=== PATIENT | male | born 1950 | race Hispanic/Latino ===

== ENCOUNTER 2018-01-06 18:20 | Inpatient (IN) | payer MEDICARE ==
[~2018-01-06 18:20] MED LIST: ISOVUE-370 76%-LOCM 1 ML ONE
[2018-01-06 19:43] LABS: #Eosinphils 0.1 thou/uL (0.0-0.7); #Lymphocytes 1.1 thou/uL (1.20-3.40); #Monocytes 0.5 thou/uL (0.11-0.59); #Neutrophils 8.4 thou/uL (1.40-6.50); %Basophils 0.3 % (0.0-1.0); %Eosinophils 1.1 % (0.0-10.0); %Lymphocytes 10.6 % (21.0-51.0); %Monocytes 5.3 % (0.0-10.0); %Neutrophils 82.7 % (42.0-75.0); Hemoglobin 9.8 g/dL (14.0-18.0); Mean Corpuscular HGB CONC 35.5 g/dL (32.0-36.0); Mean Corpuscular Hemoglobin 32.4 pg (27.0-31.0); Mean Corpuscular Volume 91.1 fL (78.0-98.0); Mean Platelet Volume 5.1 fL (7.4-10.4); Platelet Count 279 thou/uL (130-400); RBC Distribution Width 11.6 % (11.5-14.5); Red Blood Cell (RBC) Count 3.03 mill/uL (4.70-6.10); White Blood Cell (WBC) Count 10.1 thou/uL (4.8-10.8)
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
[2018-01-06 20:08] LABS: CKMB 0.8 ng/mL (0-6.6); Troponin I Less than 0.010 ng/mL (< 0.028)
[2018-01-06 20:09] LABS: ALT (SGPT) 18 U/L (8-55); AST (SGOT) 14 U/L (5-34); Albumin 3.9 g/dL (3.4-4.8); Alkaline Phosphatase 102 U/L (40-150); Anion Gap 11 mmol/L (10-20); BUN (Urea Nitrogen) 22 mg/dL (8.4-25.7); Bilirubin, Total 0.2 mg/dL (0.2-1.2); CK (CPK) 59 U/L (30-200); Calc. Creatinine Clearance 0 mL/min (70-130); Calcium 8.5 mg/dL (7.8-10.44); Carbon Dioxide 22 mmol/L (23-31); Chloride 108 mmol/L (98-107); Estimated GFR-MDRD 82; Globulin 2.6 g/dL (2.4-3.5); Glucose 128 mg/dL (80-115); Potassium 4.7 mmol/L (3.5-5.1); Protein, Total 6.5 g/dL (5.8-8.1); Sodium 136 mmol/L (136-145)
[2018-01-06 21:32] LABS: Bilirubin Negative (Negative); Blood, Urine Negative (Negative); Clarity CLEAR (Clear); Glucose, Urine (Dipstick) Negative (Negative); Leukocyte Negative (Negative); Nitrite Negative (Negative); Protein, Urine (Dipstick) Negative (Neg-Trace); Specific Gravity, Urine 1.011 (1.002-1.036); Urobilinogen 0.2 mg/dL (0.2-1.0)
--- NOTE | 2018-01-06 22:52 | CT ---
CT ANGIOGRAM OF THE HEAD WITH AND WITHOUT CONTRAST: 01/06/18 HISTORY: 67-year-old male with altered mental status, confusion, fall, and head trauma. TECHNIQUE: Noncontrast brain CT performed. Next, IV injection of Isovue. Arterial phase scan performed from C3-4 to vertex of head. Coronal and sagittal 3D MIP reconstructions. FINDINGS: There is moderate calcified and noncalcified plaque in the bilateral proximal internal carotid arteri es, including carotid bulbs. On the right this causes a severe focal stenosis of approximately 75 to 85%, located approximately 1.5 to 2 cm distal to the origin of the right internal carotid. On the lef t, this causes an approximately 30% stenosis at 0.5 to 1 cm from the origin. There is extensive atherosclerotic plaque throughout the bilateral carotid siphons, causing stenosis of the carotid siphons, especially on the left (moderate). There is atherosclerotic plaque at the distal cervical internal carotid arteries without high grade s tenosis. There is no high grade stenosis or occlusion of the supraclinoid internal carotids, M1 segments of th e bilateral middle cerebral arteries, or the A1 and A2 segments of the bilateral anterior cerebral ar teries. 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 No high grade acquired stenosis identified involving the intracranial vertebral arteries, posterior cerebral arteries, or superior cerebellar arteries. No obvious occlusion of the trifurcati on branches of the bilateral MCAs. There is also atherosclerotic plaque at the distal cervical left vertebral artery at the C1 level. Fo r the findings of the noncontrast brain CT component, please see the separate report of the brain CT performed one and a half hours earlier. IMPRESSION: 1. Significant atherosclerosis of bilateral proximal internal carotid arteries, including a emeterio re focal stenosis in the proximal right internal carotid artery. 2. Significant atherosclerosis of bilateral carotid siphons, including moderate stenosis on the left. 3. No high grade stenosis or occlusion involving the teller of Sanders identified. POS: NICOLE
[2018-01-06 23:18] LABS: PTT 25.6 SEC (22.9-36.1); Prothrombin Time 13.2 SEC (12.0-14.7)
[2018-01-06 23:58] LABS: Troponin I 0.018 ng/mL (< 0.028)
[2018-01-07] MEDS ORDERED: Sodium Chloride 0.9% 1,000 ML IV SCH (01:11)
[2018-01-07 01:42] VITALS: BMI 27.2
[2018-01-07] MEDS ORDERED: Nitroglycerin 0.4 MG TAB (25 Tab Bottle) SL PRN ×2 (02:28→19:29)
[2018-01-07] MEDS ORDERED: Acetaminophen 325 MG TAB PO PRN ×2 (02:28→19:26)
[2018-01-07] MEDS ORDERED: Loratadine 10 MG TAB PO PRN ×2 (02:28→19:29)
[2018-01-07] MEDS ORDERED: Bisacodyl 5 MG TAB PO PRN ×3 (02:28→19:26)
[2018-01-07] MEDS ORDERED: Ondansetron HCl/PF 4 MG/2 ML Vial IVP PRN ×2 (02:28→19:29)
[2018-01-07] MEDS ORDERED: Mag-Al 1200 mg/1200 mg/30 ML UDCUP PO PRN ×2 (02:28→19:26)
[2018-01-07] MEDS ORDERED: Calcium Carbonate 500 MG ChewTAB PO PRN ×2 (02:28→19:26)
[2018-01-07] MEDS ORDERED: Senokot 8.6 MG TAB PO PRN ×3 (02:28→19:29)
[2018-01-07] MEDS ORDERED: Diabetic Tussin 200 MG/10 ML UDCUP PO PRN ×2 (02:28→19:28)
[2018-01-07] MEDS ORDERED: Benzonatate 100 MG CAP PO PRN ×2 (02:28→19:26)
[2018-01-07] MEDS ORDERED: cloNIDine 0.1 MG TAB PO PRN ×2 (02:28→19:28)
[2018-01-07] MEDS ORDERED: traMADol HCl 50 MG TAB PO PRN ×2 (02:28→19:29)
[2018-01-07] MEDS ORDERED: hydrALAZINE 20 MG/ML VIAL SLOW IVP PRN ×2 (02:28→19:28)
[2018-01-07 02:38] LABS: Troponin I 0.037 ng/mL (< 0.028)
[2018-01-07] MEDS ORDERED: Dextrose 5% in Water 1,000 ML IV PRN ×2 (03:13→19:29)
[2018-01-07] MEDS ORDERED: HumaLOG 300 UNITS/3 ML VIAL SC PRN ×4 (03:13→19:30)
[2018-01-07] MEDS ORDERED: Dextrose 50% Abboject 50 ML SYRINGE SLOW IVP PRN ×2 (03:13→19:30)
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
[2018-01-07 05:34] LABS: #Eosinphils 0.1 thou/uL (0.0-0.7); #Lymphocytes 1.7 thou/uL (1.20-3.40); #Monocytes 0.6 thou/uL (0.11-0.59); #Neutrophils 4.3 thou/uL (1.40-6.50); %Basophils 0.5 % (0.0-1.0); %Eosinophils 2.2 % (0.0-10.0); %Lymphocytes 24.7 % (21.0-51.0); %Monocytes 8.5 % (0.0-10.0); %Neutrophils 64.2 % (42.0-75.0); Hemoglobin 9.6 g/dL (14.0-18.0); Mean Corpuscular HGB CONC 34.1 g/dL (32.0-36.0); Mean Corpuscular Volume 90.8 fL (78.0-98.0); Mean Platelet Volume 5.2 fL (7.4-10.4); Platelet Count 270 thou/uL (130-400); RBC Distribution Width 11.8 % (11.5-14.5); Red Blood Cell (RBC) Count 3.11 mill/uL (4.70-6.10); White Blood Cell (WBC) Count 6.7 thou/uL (4.8-10.8)
[2018-01-07 05:41] LABS: Anion Gap 11 mmol/L (10-20); BUN (Urea Nitrogen) 17 mg/dL (8.4-25.7); Calc. Creatinine Clearance 103 mL/min (70-130); Calcium 8.9 mg/dL (7.8-10.44); Carbon Dioxide 22 mmol/L (23-31); Cardiac Risk 3.8 (Less than 4.5); Chloride 110 mmol/L (98-107); Cholesterol 137 mg/dl (< 200 Desired); Estimated GFR-MDRD Greater than 90; Glucose 111 mg/dL (80-115); HDL Cholesterol 36 mg/dL (>60 Neg Risk); Iron 78 ug/dL (65-175); Iron Binding Capacity, Total 273 mcg/dL (261-462); LDL Cholesterol, Calculated 47 mg/dL; Potassium 3.9 mmol/L (3.5-5.1); Sodium 139 mmol/L (136-145); Triglycerides 269 mg/dL (Less than 150)
[2018-01-07 06:12] LABS: Folate (Folic Acid) 7.7 ng/mL (7.0-31.4)
--- NOTE | 2018-01-07 08:44 | PDOC.EVN ---
Event Note - Event Note Event Note: EVALUATED PATIENT. HE IS BACK TO HIS BASELINE ACCORDING TO HIM AND HIS FAMILY. HIS EXAM REVEALS SOME WEAKNESS IN HIS L FOOT DORSIFLEXION, BUT HE REPORTS THAT IS RELATED TO A NEUROPATHY SECONDARY TO PVD. HE STATED HE WAS SUPPOSED TO GO TO [place] TO HAVE THAT EVALUATED FOR POSSIBLE INTERVENTION. CV SURGERY CONSULT PENDING FOR CAROTID STENOSIS IN THE SETTING OF SYNCOPE AND TIA. ALSO HAS SOME MILD ANEMIA OF UNKNOWN ETIOLOGY. WORKUP IN PROGRESS.
[2018-01-07] MEDS ORDERED: Lisinopril 20 MG TAB PO SCH (09:00)
[2018-01-07] MEDS ORDERED: Pregabalin 75 MG CAP PO SCH (09:00)
[2018-01-07] MEDS ORDERED: Enoxaparin Sodium 40 MG/0.4 ML SYRINGE SC SCH (09:00)
[2018-01-07] MEDS ORDERED: Aspirin 325 mg Enteric Coated Tablet PO SCH (09:00)
[2018-01-07] MEDS ORDERED: Famotidine 20 MG TAB PO SCH (09:00)
[2018-01-07] MEDS ORDERED: Cyanocobalamin (Vitamin B-12) 1,000 MCG TAB PO SCH (09:00)
[2018-01-07] MEDS ORDERED: Rosuvastatin 20 MG TAB PO SCH (09:00)
--- NOTE | 2018-01-07 14:44 | MRI ---
MRI BRAIN NONCONTRAST: History: Altered mental status. TIA. FINDINGS: There is no evidence of acute intracranial hemorrhage or infarct. Ventricles appear normal in size, s hape, and position. There is no mass effect or shift of midline structures. Visualized paranasal sinu ses remain well aerated. IMPRESSION: No acute intracranial abnormalities are demonstrated. POS: KAILYN
[2018-01-07] MEDS ORDERED: Prevnar 13-Val Conj/PF 0.5 ML SYRINGE IM ONE (19:30)
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
[2018-01-07] MEDS: Famotidine 20 MG TAB PO SCH (21:03)
[2018-01-07] MEDS: Pregabalin 75 MG CAP PO SCH (21:03)
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
[2018-01-08] MEDS ORDERED: Cyanocobalamin (Vitamin B-12) 1,000 MCG TAB PO SCH (09:00)
[2018-01-08] MEDS ORDERED: Enoxaparin Sodium 40 MG/0.4 ML SYRINGE SC SCH (09:00)
[2018-01-08] MEDS ORDERED: Prevnar 13-Val Conj/PF 0.5 ML SYRINGE IM ONE (09:00)
[2018-01-08] MEDS ORDERED: Rosuvastatin 20 MG TAB PO SCH (09:00)
[2018-01-08] MEDS ORDERED: Aspirin 325 mg Enteric Coated Tablet PO SCH (09:00)
[2018-01-08] MEDS ORDERED: Lisinopril 20 MG TAB PO SCH (09:00)
[2018-01-08] MEDS: Pregabalin 75 MG CAP PO SCH (09:14)
[2018-01-08] MEDS: Famotidine 20 MG TAB PO SCH (09:17)
[2018-01-08 11:45] VITALS: BP 121/72; TEMP 97.9
--- NOTE | 2018-01-09 13:27 | EKG ---
Test Reason : SYNCOPE Blood Pressure : / mmHG Vent. Rate : 114 BPM Atrial Rate : 114 BPM P-R Int : 148 ms QRS Dur : 076 ms QT Int : 332 ms P-R-T Axes : 037 049 046 degrees QTc Int : 457 ms Sinus tachycardia Otherwise normal ECG Confirmed by GERA FAJARDO ([id number]), newspaper photo editor DARRYL MAS ([id number]) on 01/09/2018 1:27:27 PM Referred By: Confirmed By:GERA FAJARDO
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
== END 2018-01-08 14:23 | disposition home or self-care (01) | DRG 68 ==
LOC: ERS 18:20 → 2SE 22:44 → UNDODISIN 01-07 19:00
PROVIDERS: ADMIT Internal Medicine; ATTEND Internal Medicine
DX: I65.23 Occlusion and stenosis of bilateral carotid arteries (principal); E11.51 Type 2 diabetes mellitus with diabetic peripheral angiopathy without gangrene; I10 Essential (primary) hypertension; D64.9 Anemia, unspecified
CPT/HCPCS: 0042T; 36415; 36416; 70450; 70496; 70551; 80048; 80053; 80061; 81003; 82553; 82607; 82746; 83540; 83550; 84484; 85025; 85610; 85730; 90471; 90670; 93005; 96360; 99406; A4216; G0009; G8978-GP-CL; G8979-GP-CL; G8980-GP-CL; G8987-GO-CI; G8988-GO-CI; G8989-GO-CI; G8996-GN-CH; G8997-GN-CH; G8998-GN-CH; J1650

== ENCOUNTER 2018-03-25 14:15 | Emergency (ER) | payer MEDICARE ==
[2018-03-25] MEDS ORDERED: Lidocaine 1% 20 ML MDV ONE (14:27)
[2018-03-25] MEDS ORDERED: Bacitracin Zinc 1 Packet ONE (14:39)
== END 2018-03-25 14:46 | disposition home or self-care (01) ==
LOC: SCSER 14:15
DX: L02.214 Cutaneous abscess of groin (principal); I10 Essential (primary) hypertension; E11.9 Type 2 diabetes mellitus without complications; F17.210 Nicotine dependence, cigarettes, uncomplicated; Z79.82 Long term (current) use of aspirin; Z79.84 Long term (current) use of oral hypoglycemic drugs; Z79.899 Other long term (current) drug therapy
CPT/HCPCS: 10061; J2001

== ENCOUNTER 2018-04-20 05:55 | Inpatient (IN) | payer MEDICARE ==
--- NOTE | 2018-04-19 13:21 | HP ---
DATE OF ADMISSION: 04/20/2018 HISTORY OF PRESENT ILLNESS: This is a 67-year-old gentleman that was found to have a severe asymptom atic right carotid stenosis. The patient is now being admitted for elective right carotid endarterec cruz. PAST MEDICAL HISTORY: Significant for diabetes mellitus, hypertension and peripheral vascular diseas e. PAST SURGICAL HISTORY: Cholecystectomy, right common femoral endarterectomy 07/2017, left femoral en darterectomy 11/2017 and previous angiography at [facility] in 06/2017. SOCIAL HISTORY: The patient was a lifelong smoker, but stopped about 9 months ago. He used to walk quite a bit, but his walking has been curtailed significantly due to his peripheral vascular disease. MEDICATIONS: Listed as Crestor, Plavix, metformin, lisinopril, Lyrica, vitamin B12 and thiamine. ALLERGIES: He has no known allergies. PHYSICAL EXAMINATION: GENERAL: No distress. NECK: Reveals no carotid bruits. CARDIAC: Regular rate and rhythm with no murmurs. LUNGS: Clear to auscultation. PERIPHERAL PULSES: He has palpable femoral pulses bilaterally. He has no distal pulses that are pal pable. He has a posterior tibial signal on the right with a pressure of 90 and on the left with a pr essure of 90 with an arm pressure of about 120. PLAN: At this time is for elective right carotid endarterectomy and informed consent has been obtain ed.
[2018-04-20] MEDS ORDERED: Protamine Sulfate 50 MG/5 ML VIAL ONE ×2 (06:29→06:35)
[2018-04-20] MEDS ORDERED: Heparin 5,000 UNITS/ML VIAL ONE ×2 (06:29→06:35)
[2018-04-20] MEDS ORDERED: CEFAZOLIN/Water 2 GM/20 ML SYRINGE ONE (06:33)
[2018-04-20 06:39] LABS: #Eosinphils 0.1 thou/uL (0.0-0.7); #Lymphocytes 1.4 thou/uL (1.20-3.40); #Monocytes 0.7 thou/uL (0.11-0.59); #Neutrophils 4.9 thou/uL (1.40-6.50); %Basophils 0.6 % (0.0-1.0); %Eosinophils 1.7 % (0.0-10.0); %Lymphocytes 19.7 % (21.0-51.0); %Monocytes 9.2 % (0.0-10.0); %Neutrophils 68.9 % (42.0-75.0); Hemoglobin 13.5 g/dL (14.0-18.0); Mean Corpuscular HGB CONC 33.7 g/dL (32.0-36.0); Mean Corpuscular Hemoglobin 30.1 pg (27.0-31.0); Mean Corpuscular Volume 89.3 fL (78.0-98.0); Mean Platelet Volume 5.6 fL (7.4-10.4); Platelet Count 292 thou/uL (130-400); RBC Distribution Width 12.9 % (11.5-14.5); White Blood Cell (WBC) Count 7.1 thou/uL (4.8-10.8)
[2018-04-20 07:00] LABS: Anion Gap 12 mmol/L (10-20); BUN (Urea Nitrogen) 22 mg/dL (8.4-25.7); Calc. Creatinine Clearance 108 mL/min (70-130); Calcium 9.3 mg/dL (7.8-10.44); Carbon Dioxide 21 mmol/L (23-31); Chloride 108 mmol/L (98-107); Estimated GFR-MDRD Greater than 90; Glucose 166 mg/dL (80-115); Potassium 3.9 mmol/L (3.5-5.1); Sodium 137 mmol/L (136-145)
[2018-04-20] MEDS ORDERED: Fentanyl 250 MCG/5 ML VIAL ONE (07:10)
[2018-04-20] MEDS ORDERED: Phenylephrine HCL 10 MG/ML VIAL ONE (07:11)
[2018-04-20] MEDS ORDERED: Norepinephrine 4 MG/4 ML VIAL ONE (07:11)
[2018-04-20] MEDS ORDERED: Ketorolac Tromethamine 30 MG/ML VIAL IVP PRN (09:12)
[2018-04-20] MEDS ORDERED: Promethazine HCl 25 MG/ML VIAL IM PRN ×2 (09:12→14:22)
[2018-04-20] MEDS ORDERED: Promethazine HCl 25 MG/ML VIAL SLOW IVP PRN (09:12)
[2018-04-20] MEDS ORDERED: HYDROmorphone 2 MG/ML VIAL SLOW IVP PRN (09:12)
[2018-04-20] MEDS ORDERED: Fentanyl 100 MCG/2 ML VIAL ONE (09:15)
[2018-04-20] MEDS ORDERED: HYDROmorphone 2 MG/ML VIAL ONE (09:43)
--- NOTE | 2018-04-20 10:48 | OP ---
DATE OF PROCEDURE: 04/20/2018 PREOPERATIVE DIAGNOSIS: Severe right internal carotid artery stenosis. POSTOPERATIVE DAIGNOSIS: Severe right internal carotid artery stenosis. PROCEDURE: Right carotid endarterectomy with bovine patch angioplasty. SURGEON: Len Gregg M.D. ANESTHESIA: General. ESTIMATED BLOOD LOSS: 150 mL. PROCEDURE IN DETAIL: After adequate anesthesia had been obtained, ultrasound was used to guide the f uture incision on the right side of the neck. Prepping and draping were performed. Incision was mad e and carried through the platysma. Common internal and external carotid arteries were dissected. H ypoglossal nerve was identified and avoided. Vagus nerve was not visualized. After 7500 units of he melodie, clamps were applied, arteriotomy performed through a very friable plaque. A 12-Finnish shunt w as placed following which endarterectomy was carried out with satisfactory tapering distally. The ar ea was thoroughly irrigated with heparin saline and a bovine patch was used to secure the arteriotomy . Shunt was removed prior to completing the suture line and the vessels back flushed and forward flu shed. Flow was then restored up the external and then internal carotid artery. Protamine was given to reverse the heparin and Surgicel was applied to the incision for needle hole bleeding. After obta ining good hemostasis, the wound was closed in layers and the patient is to be taken to the recovery room in guarded condition.
[2018-04-20] MEDS ORDERED: Lidocaine 1% PF 5 ML VIAL ONE (11:43)
[2018-04-20] MEDS ORDERED: Esmolol 100 MG/10 ML VIAL ONE (11:43)
[2018-04-20] MEDS ORDERED: PHENYLEPHRINE-NS 100 MCG/ML 10 ML SYRINGE ONE (11:43)
[2018-04-20] MEDS ORDERED: Ondansetron HCl/PF 4 MG/2 ML Vial ONE (11:43)
[2018-04-20] MEDS ORDERED: PROPOFOL 200 MG/20 ML VIAL ONE (11:43)
[2018-04-20] MEDS ORDERED: Heparin 10,000 UNITS/ 10 ML VIAL ONE (11:43)
[2018-04-20] MEDS ORDERED: ePHEDrine/0.9% NaCl/PF SYRINGE 50 mg/10 ml ONE (11:43)
[2018-04-20] MEDS ORDERED: Glycopyrrolate 0.2 MG/ML 5 ML SYRINGE ONE (11:43)
[2018-04-20] MEDS ORDERED: Ondansetron HCl/PF 4 MG/2 ML Vial IVP PRN (14:22)
[2018-04-20] MEDS ORDERED: Phenylephrine 10 MG/NS 250 ML 250 ML IVPB PRN (14:22)
[2018-04-20] MEDS ORDERED: Acetaminophen 325 MG TAB PO PRN (14:22)
[2018-04-20] MEDS ORDERED: Insulin Regular 300 UNITS/3 ML VIAL SC PRN (14:22)
[2018-04-20] MEDS ORDERED: Fentanyl 100 MCG/2 ML VIAL SLOW IVP PRN (14:22)
[2018-04-20] MEDS ORDERED: HYDROcodone/Acetaminophen 5/325 mg Tablet PO PRN (14:22)
[2018-04-20] MEDS ORDERED: Sodium Chloride 0.9% 1,000 ML IV SCH (14:22)
[2018-04-20 14:29] VITALS: BMI 27.5
[2018-04-20] MEDS: CEFAZOLIN/Water 2 GM/20 ML SYRINGE SLOW IVP SCH ×2 (14:56→22:32)
[2018-04-20] MEDS: HYDROcodone/Acetaminophen 5/325 mg Tablet PO PRN ×3 (14:56→23:21)
[2018-04-20] MEDS: metFORMIN 500 MG TAB PO SCH (17:39)
[2018-04-20 17:43] VITALS: BP 121/63
[2018-04-20] MEDS ORDERED: Pregabalin 75 MG CAP PO SCH (21:00)
[2018-04-20] MEDS ORDERED: Pravastatin Sodium 40 MG TAB PO SCH (21:00)
[2018-04-21] MEDS: HYDROcodone/Acetaminophen 5/325 mg Tablet PO PRN (06:11)
--- NOTE | 2018-04-21 07:28 | DIS ---
HOSPITAL COURSE: The patient was admitted on 04/20/2018 where he underwent a right carotid endartere ctomy. Postoperative course was not remarkable. His vital signs were stable. His sugars were relat ively good and his neurologic status was normal. He had moderate swelling in his right neck that was soft, had no complaints and denies any need for pain medicines at home. I have given discharge and follow up instructions. Mentation is excellent and he understands the instructions.
[2018-04-21] MEDS: CEFAZOLIN/Water 2 GM/20 ML SYRINGE SLOW IVP SCH (08:03)
[2018-04-21] MEDS: metFORMIN 500 MG TAB PO SCH (08:04)
[2018-04-21 08:13] VITALS: TEMP 98.4
[2018-04-21] MEDS ORDERED: Lisinopril 2.5 MG TAB PO SCH (09:00)
[2018-04-21] MEDS ORDERED: Prevnar 13-Val Conj/PF 0.5 ML SYRINGE IM ONE (09:00)
== END 2018-04-21 08:05 | disposition home or self-care (01) | DRG 39 ==
LOC: SURG A 05:55 → CCU 11:25 → EDSTATUS 15:36
PROVIDERS: ADMIT Thoracic Surgery (Cardiothoracic Vascular Surgery); ATTEND Thoracic Surgery (Cardiothoracic Vascular Surgery)
PROC: 03CH0ZZ Extirpation of Matter from Right Common Carotid Artery, Open Approach (ICD-10-PCS; principal; 2018-04-20)
PROC: 03CM0ZZ Extirpation of Matter from Right External Carotid Artery, Open Approach (ICD-10-PCS; 2018-04-20)
PROC: 03CK0ZZ Extirpation of Matter from Right Internal Carotid Artery, Open Approach (ICD-10-PCS; 2018-04-20)
PROC: 03UH0KZ Supplement Right Common Carotid Artery with Nonautologous Tissue Substitute, Open Approach (ICD-10-PCS; 2018-04-20)
PROC: 03UK0KZ Supplement Right Internal Carotid Artery with Nonautologous Tissue Substitute, Open Approach (ICD-10-PCS; 2018-04-20)
PROC: 03UM0KZ Supplement Right External Carotid Artery with Nonautologous Tissue Substitute, Open Approach (ICD-10-PCS; 2018-04-20)
DX: I65.29 Occlusion and stenosis of unspecified carotid artery (principal); I10 Essential (primary) hypertension; E11.51 Type 2 diabetes mellitus with diabetic peripheral angiopathy without gangrene
CPT/HCPCS: 36415; 36416; 80048; 85025; 90471; 90670; G0009; J0131; J1170; J1642; J1644; J2001; J2370; J2405; J2704; J2720; J3010